=== PATIENT | female | born 1970 | race Two or more races ===

== ENCOUNTER 2025-01-11 08:30 | Outpatient (RCR) | payer MEDICAID, SELFPAY ==
--- NOTE | 2025-01-10 09:01 | XR_ITS ---
Examination: Nuclear medicine thyroid uptake and scan Date and time: January 10, 2025 1556 hours INDICATIONS: Swollen neck difficulty swallowing months, outside thyroid examination thyroid nodule on the left TECHNIQUE AND FINDINGS: Oral administration 283 uCi [id number] 6 hour 24 hour uptake is recorded as well as anterior oblique scans 6 hour uptake 11.1% normal range 6-24% 24 hour uptake 17.7% normal range 10-36% Normal thyroid scan IMPRESSION: Normal study
== END 2025-01-16 23:59 | disposition home or self-care (01) ==
LOC: SNUC 08:30
PROVIDERS: PCP Registered Nurse; Referring Provider Registered Nurse; Visit Provider Registered Nurse
DX: E04.1 Nontoxic single thyroid nodule (principal)
CPT/HCPCS: 78013; A9516